=== PATIENT | female | born 1995 | race Caucasian/White ===

== ENCOUNTER 2016-07-02 01:11 | Emergency (ER) | payer OTHER ==
[2016-07-02 02:25] LABS: HCT 37.4 % (37.0-47.0); HGB 12.6 g/dl (12.5-16.0); MCH 30.1 pg (25.0-31.0); MCHC 33.7 g/dL (32.0-36.0); MCV 89.3 fL (78.0-100.0); PLT 173 K/uL (150-400); RBC 4.19 M/uL (4.20-5.40); WBC 8.3 K/uL (4.0-10.5)
[2016-07-02 02:39] LABS: ALBUMIN 4.7 g/dL (3.5-5.0); BILIRUBIN - TOTAL 0.2 mg/dL (0.1-1.0); CREATININE 0.9 mg/dL (0.5-1.0); POTASSIUM 4.1 mmol/L (3.5-5.1); TOTAL PROTEIN 7.7 g/dL (6.4-8.3)
== END 2016-07-02 04:34 | disposition home or self-care (01) ==
LOC: FER 01:11
PROVIDERS: Emergency Medicine
DX: S29.011A Strain of muscle and tendon of front wall of thorax, initial encounter (principal); M94.0 Chondrocostal junction syndrome [Tietze]; R11.2 Nausea with vomiting, unspecified; Z88.0 Allergy status to penicillin; F17.210 Nicotine dependence, cigarettes, uncomplicated
CPT/HCPCS: 36415; 80053; 85379; 93005; J1885